=== PATIENT | male | born 1975 | race Caucasian/White ===

== ENCOUNTER 2017-03-28 11:18 | Emergency (ER) | payer MEDICAID ==
[~2017-03-28] VITALS: Ht 177.8 cm; Wt 95.2 kg
[2017-03-28 11:19] VITALS: Ht 177.8 cm; Wt 95.2 kg
[2017-03-28 12:07] LABS: BASOPHIL % 0.3 % (0-2); PLATELET COUNT 184 x10^3mcL (130-400)
[2017-03-28 12:08] LABS: ALBUMIN 3.6 g/dL (3.4-5.0); ALKALINE PHOSPHATASE 41 U/L (46-116); ALT/SGPT 28 U/L (16-63); AST/SGOT 24 U/L (15-37); BILIRUBIN TOTAL 0.39 mg/dL (0.20-1.00); CALCIUM 8.7 mg/dL (8.5-10.1); CARBON DIOXIDE 30.8 mmol/L (21-32); CHLORIDE SERUM 104 mmol/L (98-107); CHOLESTEROL 150 mg/dL (<200); CREATININE SERUM 0.8 mg/dL (0.7-1.3); GFR1 > 60 mL/min; POTASSIUM SERUM 4.4 mmol/L (3.5-5.1); SODIUM SERUM 140 mmol/L (136-145); TOTAL PROTEIN, SERUM 7.2 g/dL (6.4-8.2)
[2017-03-28 12:09] LABS: GLUCOSE SERUM 54 mg/dL (74-106)
[2017-03-28 12:12] LABS: RED CELL DISTRIBUTION WIDTH 15.9 % (11.5-14.5)
[2017-03-28 17:34] VITALS: BP 117/80
== END 2017-03-28 17:50 | disposition home or self-care (01) ==
LOC: ED 11:18
PROVIDERS: Emergency Medicine
DX: E16.2 Hypoglycemia, unspecified (principal); E11.9 Type 2 diabetes mellitus without complications
CPT/HCPCS: 36415; 82962; 83880; G0480; Q0092